=== PATIENT | female | born 1990 | race Caucasian/White ===

== ENCOUNTER 2016-11-17 19:19 | Emergency (ER) | payer OTHER ==
[2016-11-17] MEDS ORDERED: HYDR-971 PO (20:33)
[2016-11-17 20:45] VITALS: BP 113/62
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
== END 2016-11-17 20:45 | disposition home or self-care (01) ==
LOC: ER 19:19
DX: M25.512 Pain in left shoulder (principal); M25.511 Pain in right shoulder; M54.2 Cervicalgia
CPT/HCPCS: 81025; 99283